=== PATIENT | male | born 1965 | race African-American/Black ===

== ENCOUNTER 2018-04-07 22:43 | Observation (INO) ==
[2018-04-07] MEDS ORDERED: methylPREDNISolone SOD SUC 125 MG/2 ML VIAL IV STA (22:57)
[2018-04-07] MEDS ORDERED: ALBUTEROL 2.5 MG/3 ML NEB RESP TX SCH (23:00)
[2018-04-07 23:14] LABS: Basophils % 0.5 % (0.0-0.8); Eosinophils # 0.5 10*3/uL (0.0-0.87); Hemoglobin 13.3 GM/DL (14.0-18.0); Immature Granulocytes % 0.4 %; Immature Granulocytes Absolute 0.03 #; Lymphocytes # 2.8 10*3/uL (1.4-4.0); Lymphocytes % 35.3 % (21.2-54.2); Mean Corpuscular HGB Conc 32.4 GM/DL (32-36); Mean Corpuscular Hemoglobin 29 PG (27-34); Mean Corpuscular Volume 90.1 FL (87-102); Mean Platelet Volume 11.5 FL (9.6-12.0); Monocytes # 0.8 10*3/uL (0.11-0.8); Monocytes % 9.6 % (1.7-12.7); Neutrophils # 3.8 10*3/uL (1.4-7.4); Neutrophils % 48.2 % (38.7-73.9); Platelet Count 252 T/CUMM (130-400); Red Blood Count 4.55 MC/CUMM (3.8-5.5); Red Cell Distribution Width 14.6 % (9.3-17.3); White Blood Count 7.8 T/CUMM (4-12)
[2018-04-07 23:38] LABS: Alanine Aminotransferase 26 U/L (16-61); Albumin 3.8 G/DL (3.4-5.0); Alkaline Phosphatase 64 U/L (45-117); Aspartate Amino Transferase 20 U/L (0-37); Bilirubin,Total < 0.39 MG/DL (0.2-1.0); Blood Urea Nitrogen 10 MG/DL (7-18); Calcium 8.4 MG/DL (8.5-10.1); Glucose 104 MG/DL (74-106); Osmolality,Calculated 281.1 MOS/KG (273-304); Sodium 142 MMOL/L (136-145); Total Protein 7.5 G/DL (6.4-8.3)
[2018-04-08] MEDS ORDERED: ONDANSETRON 4 MG/2 ML VIAL IV PRN (00:04)
[2018-04-08] MEDS ORDERED: ACETAMINOPHEN 325 MG TABLET PO PRN (00:04)
[2018-04-08] MEDS ORDERED: ALBUTEROL 2.5 MG/3 ML NEB RESP TX PRN (00:09)
[2018-04-08] MEDS: ALBUTEROL/IPRATROPIUM 3 ML NEB RESP TX SCH ×2 (04:31→07:05)
[2018-04-08] MEDS ORDERED: methylPREDNISolone SOD SUC 125 MG/2 ML VIAL IV SCH (06:00)
[2018-04-08] MEDS ORDERED: PANTOPRAZOLE 40 MG TABLET PO SCH (09:00)
[2018-04-08] MEDS ORDERED: BUDESONIDE/FORMOTEROL 160-4.5 INHALER 6 GM INH SCH (09:00)
[2018-04-08] MEDS ORDERED: amLODIPine 10 MG TABLET PO SCH (09:00)
[2018-04-08] MEDS ORDERED: ENOXAPARIN 40 MG/0.4 ML SYRINGE SUBCUT SCH (09:00)
[2018-04-08 12:32] VITALS: BP 177/79
[2018-04-08] MEDS ORDERED: MONTELUKAST 10 MG TABLET PO SCH (21:00)
== END 2018-04-08 12:37 | disposition home or self-care (01) ==
LOC: N.ED 22:43 → N.2E 22:43
PROVIDERS: ADMIT Hospitalist; ATTEND Hospitalist

== ENCOUNTER 2020-06-21 05:30 | Inpatient (IN) ==
[2020-06-21] MEDS ORDERED: VANCOMYCIN INJ 1,000 MG in SODIUM CHLORIDE 0.9% 250 ML IV ONE (06:00)
[2020-06-21] MEDS ORDERED: ceFAZolin 1,000 MG in SYRINGE 1 EACH IV ONE (06:00)
[2020-06-21] MEDS ORDERED: fentaNYL 100 MCG/2 ML VIAL ONE (06:24)
[2020-06-21] MEDS ORDERED: MIDAZOLAM 2 MG/2 ML VIAL ONE ×2 (06:25)
[2020-06-21] MEDS ORDERED: BUPIVACAINE 0.5% 50 ML VIAL ONE (06:26)
[2020-06-21] MEDS ORDERED: EPINEPHrine 1 MG/ML VIAL ONE (06:27)
[2020-06-21] MEDS ORDERED: LACTATED RINGERS 1,000 ML IV SCH (06:30)
[2020-06-21] MEDS ORDERED: HYDROmorphone 2 MG/1 ML VIAL ONE (07:02)
[2020-06-21] MEDS ORDERED: KETAMINE 500 MG/10 ML VIAL ONE (07:04)
[2020-06-21] MEDS ORDERED: propofoL 200 MG/20 ML VIAL IV ONE (07:50)
[2020-06-21] MEDS ORDERED: ceFAZolin 1,000 MG VIAL ONE (07:50)
[2020-06-21] MEDS ORDERED: ONDANSETRON 4 MG/2 ML VIAL ONE (07:50)
[2020-06-21] MEDS ORDERED: LIDOCAINE 2% 5 ML VIAL ONE (07:50)
[2020-06-21] MEDS ORDERED: DEXMEDETOMIDINE 200 MCG/2 ML VIAL ONE (08:24)
[2020-06-21] MEDS ORDERED: GLYCOPYRROLATE 0.4 MG/2 ML VIAL ONE (08:24)
[2020-06-21] MEDS ORDERED: TRANEXAMIC ACID 1,000 MG/10 ML VIAL ONE (08:24)
[2020-06-21] MEDS ORDERED: PHENYLEPHRINE 1 MG/10 ML SYRINGE IV ONE (08:44)
[2020-06-21] MEDS ORDERED: ROCURONIUM 50 MG/5 ML VIAL IV ONE (09:00)
[2020-06-21] MEDS ORDERED: SUCCINYLCHOLINE 200 MG/10 ML VIAL ONE (09:00)
[2020-06-21] MEDS ORDERED: LACTATED RINGERS 1,000 ML IV ONE ×2 (09:09→09:10)
[2020-06-21] MEDS ORDERED: ACETAMINOPHEN 500 MG TABLET PO ONE (09:22)
[2020-06-21] MEDS ORDERED: GABAPENTIN 400 MG CAPSULE PO ONE (09:22)
[2020-06-21] MEDS ORDERED: ONDANSETRON 4 MG/2 ML VIAL IV PRN ×2 (09:25)
[2020-06-21] MEDS ORDERED: diphenhydrAMINE CAP 25 MG CAPSULE PO PRN (09:25)
[2020-06-21] MEDS ORDERED: PROMETHAZINE INJ 25 MG in SODIUM CHLORIDE 0.9% 50 ML IV PRN (09:25)
[2020-06-21] MEDS ORDERED: PROMETHAZINE 25 MG/1 ML VIAL IM PRN (09:25)
[2020-06-21] MEDS ORDERED: diphenhydrAMINE 50 MG/1 ML VIAL IV PRN (09:25)
[2020-06-21] MEDS ORDERED: LACTULOSE 20 GM/30 ML UDCUP PO PRN (09:25)
[2020-06-21] MEDS ORDERED: BISACODYL 10 MG SUPP RECTAL PRN (09:25)
[2020-06-21] MEDS ORDERED: HYDROmorphone 2 MG/1 ML VIAL IV PRN (09:25)
[2020-06-21] MEDS ORDERED: MEPERIDINE 25 MG/1 ML VIAL IV PRN (09:25)
[2020-06-21] MEDS ORDERED: MORPHINE 4 MG/1 ML VIAL IV PRN ×2 (09:25→09:42)
[2020-06-21] MEDS ORDERED: TEMAZEPAM 7.5 MG CAPSULE PO PRN (09:25)
[2020-06-21] MEDS ORDERED: ALBUTEROL 2.5 MG/3 ML NEB RESP TX PRN (09:29)
[2020-06-21 09:35] LABS: Bilirubin,Urine Negative (Negative); Blood, Urine Negative (Negative); Glucose,Urine (UA) Negative (Negative); Ketones,Urine Negative (Negative); Mucus,Urine Occasional /LPF (Occasional); Nitrite,Urine Negative (Negative); Protein,Urine Negative; RBC,Urine 2 /HPF (0-4); Urine Appearance CLEAR (Clear); Urine Color Yellow (Yellow); Urine Specific Gravity 1.021 (1.001-1.035); Urine Urobilinogen < 2.0 EU/DL (0.2-1.0); WBC,Urine 2 /HPF (0-6)
[2020-06-21] MEDS ORDERED: ACETAMINOPHEN INJ 1,000 MG in PREMIX 1 EACH IV ONE (10:05)
[2020-06-21] MEDS ORDERED: ACETAMINOPHEN 1,000 MG/100 ML VIAL IV ONE (10:06)
[2020-06-21] MEDS ORDERED: NALOXONE 0.4 MG/ML VIAL ONE ×2 (11:47→12:03)
[2020-06-21] MEDS ORDERED: NALOXONE 0.4 MG/ML VIAL IV ONE ×2 (11:48→12:00)
[2020-06-21] MEDS: ceFAZolin 2,000 MG in PREMIX 1 EACH IV SCH ×2 (14:37→23:20)
[2020-06-21] MEDS: FONDAPARINUX 2.5 MG/0.5 ML SYRINGE SUBCUT SCH (17:07)
[2020-06-21 17:24] LABS: ABG Base Excess -0.9 MMOL/L (-2.5-2.5); ABG HCO3 23.6 MMOL/L (20-26); ABG Oxygen Saturation 92.4 % (95-100); ABG PO2 78.3 MM HG (80-95); ABG TCO2 28.2 MMOL/L (23-27)
[2020-06-21 17:27] LABS: ABG PH 7.174 (7.35-7.45)
[2020-06-21 17:28] LABS: ABG PCO2 83.9 MM HG (35-48)
[2020-06-21] MEDS: methylPREDNISolone SOD SUC 40 MG/1 ML VIAL IV SCH (18:30)
[2020-06-21] MEDS: ALBUTEROL 2.5 MG/3 ML NEB RESP TX SCH (19:01)
[2020-06-21] MEDS: DOCUSATE SODIUM 100 MG CAPSULE PO SCH (21:09)
[2020-06-21] MEDS: BUDESONIDE/FORMOTEROL 80-4.5 INHALER 6.9 GM INH SCH (21:10)
[2020-06-22] MEDS ORDERED: ALBUTEROL/IPRATROPIUM 3 ML NEB RESP TX ONE (01:40)
[2020-06-22] MEDS: ALBUTEROL 2.5 MG/3 ML NEB RESP TX SCH ×4 (01:42→19:38)
[2020-06-22] MEDS: methylPREDNISolone SOD SUC 40 MG/1 ML VIAL IV SCH ×4 (02:57→20:10)
[2020-06-22 05:32] LABS: Basophils % 0.1 % (0.0-0.8); Hematocrit 37.5 VOL% (42.0-52.0); Hemoglobin 11.5 GM/DL (14.0-18.0); Immature Granulocytes % 0.4 %; Immature Granulocytes Absolute 0.04 #; Lymphocytes % 10.2 % (21.2-54.2); Mean Corpuscular HGB Conc 30.7 GM/DL (32-36); Mean Corpuscular Volume 95.7 FL (87-102); Mean Platelet Volume 11.8 FL (9.6-12.0); Monocytes % 7.6 % (1.7-12.7); Neutrophils % 81.7 % (38.7-73.9); Platelet Count 222 T/CUMM (130-400); Red Blood Count 3.92 MC/CUMM (3.8-5.5)
[2020-06-22 05:42] LABS: Calcium 9.2 MG/DL (8.5-10.1); Osmolality,Calculated 277.7 MOS/KG (273-304); Potassium 5.2 MMOL/L (3.5-5.1)
[2020-06-22] MEDS: DOCUSATE SODIUM 100 MG CAPSULE PO SCH ×2 (09:01→20:11)
[2020-06-22] MEDS: BUDESONIDE/FORMOTEROL 80-4.5 INHALER 6.9 GM INH SCH ×2 (09:01→20:11)
[2020-06-22] MEDS: FONDAPARINUX 2.5 MG/0.5 ML SYRINGE SUBCUT SCH (17:26)
[2020-06-23] MEDS: ALBUTEROL 2.5 MG/3 ML NEB RESP TX SCH ×4 (00:20→19:29)
[2020-06-23] MEDS: methylPREDNISolone SOD SUC 40 MG/1 ML VIAL IV SCH ×2 (09:57→20:24)
[2020-06-23] MEDS: DOCUSATE SODIUM 100 MG CAPSULE PO SCH ×2 (10:14→20:23)
[2020-06-23] MEDS: BUDESONIDE/FORMOTEROL 80-4.5 INHALER 6.9 GM INH SCH ×2 (10:14→20:27)
[2020-06-23] MEDS: MAGNESIUM HYDROXIDE SUSP 30 ML UDCUP PO PRN ×2 (14:29→20:24)
[2020-06-23] MEDS: FONDAPARINUX 2.5 MG/0.5 ML SYRINGE SUBCUT SCH (17:57)
[2020-06-24] MEDS: ALBUTEROL 2.5 MG/3 ML NEB RESP TX SCH ×3 (00:38→13:09)
[2020-06-24] MEDS: methylPREDNISolone SOD SUC 40 MG/1 ML VIAL IV SCH (09:22)
[2020-06-24] MEDS: BUDESONIDE/FORMOTEROL 80-4.5 INHALER 6.9 GM INH SCH (10:32)
[2020-06-24] MEDS: DOCUSATE SODIUM 100 MG CAPSULE PO SCH (10:32)
[2020-06-24 11:28] VITALS: BP 152/67
== END 2020-06-24 16:20 | disposition home health service (06) | DRG 469 ==
LOC: N.OR 05:31 → N.SDSINP 05:31 → N.3E 10:40
PROVIDERS: ADMIT Orthopaedic Surgery; ATTEND Orthopaedic Surgery